=== PATIENT | male | born 1975 | race Caucasian/White ===

== ENCOUNTER 2020-05-11 07:55 | Outpatient (CLI) | payer BC, SELFPAY ==
--- NOTE | 2020-05-11 08:00 | MR_ITS ---
WS: [id number] MRI CERVICAL SPINE NONCONTRAST TECHNIQUE: Sagittal T1, T2 and STIR imaging. Axial T2, gradient, and fiesta imaging. CLINICAL INFORMATION: NECK PAIN;RIGHT CERVICAL RADICULOPATHY COMPARISON: None. FINDINGS: Straightening of the normal cervical lordosis. Mild disc bulging worse at C3-C4, C5-C6, and right ecc entric C6-7. Normal paravertebral soft tissues. C2-C3: Normal. C3-C4: Mild disc bulging with slight effacement of ventral thecal sac. Moderate right and mild left f oraminal narrowing. Mild facet arthropathy. C4-C5: Mild left and no significant right foraminal narrowing. Right eccentric osteophytic ridging. S matias canal is patent. C5-C6: Broad-based lobulated left pericentral protrusion with contact of the left ventral cervical co rd. Moderate left foraminal narrowing. Moderate right foraminal narrowing. Mild central canal stenosi s. C6-C7: Right eccentric disc osteophytic ridging. Severe right bony foraminal narrowing. Mild left for aminal narrowing. Spinal canal is patent. C7-T1: Mild right and no significant left foraminal narrowing. Spinal canal is patent. Visualized brain stem structures: Normal. Prevertebral soft tissues: Normal. MR/MR cervical spin wo con* [id number] IMPRESSION: 1. Straightening of the normal cervical lordosis with disc bulging worse at C3 -C4 C5-C6 and right C6-C7. 2. Disc osteophyte complex C6-C7 with right eccentric osteophytic ridging. Thi s results in severe right foraminal narrowing. Recommend correlation for right C7 nerve root symptoms. 3. Lobulated shallow left pericentral protrusion C5-C6 with mild central canal stenosis and slight contact of the cervical cord. Moderate bilateral foraminal narrowing at this level. 4. Right eccentric disc osteophyte complex C3-C4 with moderate right foraminal narrowing. 5. Mild disc bulging and osteophytic ridging C7-T1 with mild right foraminal n arrowing.
== END 2020-05-11 07:56 | disposition home or self-care (01) ==
PROVIDERS: PCP Nurse Practitioner Family; Visit Provider Nurse Practitioner Family
DX: M54.12 Radiculopathy, cervical region (principal); M50.23 Other cervical disc displacement, cervicothoracic region; M25.78 Osteophyte, vertebrae; M50.223 Other cervical disc displacement at C6-C7 level
CPT/HCPCS: 72141

== ENCOUNTER → 2020-05-29 07:54 | Outpatient (BNVA) | payer BC, SELFPAY | PROVIDERS: PCP Nurse Practitioner Family; Referring Provider Nurse Practitioner Family; Visit Provider Orthopaedic Surgery | DX: M54.2 Cervicalgia (principal) | CPT/HCPCS: 72050 ==

== ENCOUNTER → 2020-05-30 08:33 | Outpatient (BNVA) | payer BC, SELFPAY | PROVIDERS: PCP Nurse Practitioner Family; Referring Provider Orthopaedic Surgery; Visit Provider Anesthesiology Pain Medicine | DX: M47.22 Other spondylosis with radiculopathy, cervical region (principal); Z79.899 Other long term (current) drug therapy | CPT/HCPCS: 99205 ==

== ENCOUNTER → 2020-06-08 12:30 | Outpatient (BNVA) | payer BC, SELFPAY | PROVIDERS: PCP Nurse Practitioner Family; Visit Provider Anesthesiology Pain Medicine | DX: G89.29 Other chronic pain (principal); M54.2 Cervicalgia; M51.17 Intervertebral disc disorders with radiculopathy, lumbosacral region | CPT/HCPCS: 62321; J1100 ==

== ENCOUNTER → 2020-07-02 11:09 | Outpatient (BNVA) | payer BC, SELFPAY | PROVIDERS: PCP Nurse Practitioner Family; Visit Provider Nurse Practitioner Family | DX: Z20.828 Contact with and (suspected) exposure to other viral communicable diseases (principal); J06.9 Acute upper respiratory infection, unspecified | CPT/HCPCS: 87635 ==

== ENCOUNTER → 2020-07-16 10:15 | Outpatient (BNVA) | payer OTHER, SELFPAY | PROVIDERS: PCP Nurse Practitioner Family; Visit Provider Anesthesiology Pain Medicine | DX: G89.29 Other chronic pain (principal); M47.22 Other spondylosis with radiculopathy, cervical region | CPT/HCPCS: 62321; 99212; 99213; J1100 ==

== ENCOUNTER → 2020-07-31 10:56 | Outpatient (BNVA) | payer OTHER, SELFPAY | PROVIDERS: PCP Nurse Practitioner Family; Visit Provider Anesthesiology Pain Medicine | DX: M50.90 Cervical disc disorder, unspecified, unspecified cervical region (principal); M47.22 Other spondylosis with radiculopathy, cervical region; Z78.9 Other specified health status | CPT/HCPCS: 99214 ==

== ENCOUNTER → 2020-08-24 13:01 | Outpatient (BNVA) | payer OTHER, SELFPAY | PROVIDERS: PCP Nurse Practitioner Family; Visit Provider Anesthesiology Pain Medicine | DX: G89.29 Other chronic pain (principal); M50.90 Cervical disc disorder, unspecified, unspecified cervical region | CPT/HCPCS: 62321; J1100 ==

== ENCOUNTER 2021-04-17 10:05 | Outpatient (CLI) | payer OTHER, SELFPAY ==
[2021-04-17 10:21] VITALS: BMI 35.9
--- NOTE | 2021-04-17 10:21 | ECG_ITS ---
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 Interpretive Statements NAME OF STUDY: LEXISCAN SESTAMIBI STRESS TEST INDICATION: [Chest Pain, ] Procedure: At the baseline, the blood pressure was 113/89 mmHg with a heart rate of 122 bpm. The electrocardiogram showed normal sinus rhythm, with normal ST and T's. The Lexiscan was infused over a period of 20 seconds. A total of 0.4 mg of Lexiscan was infused. The stress phase was continued for a total of 5 minutes. Heart rate was at the end of stress phase was 85 bpm and a blood pressure of 126/82 mmHg. The EKG at the peak infusion revealed since normal sinus rhythm with no significant ST-T wave changes. Sestamibi was injected 20 seconds after the Lexiscan infusion. Blood pressure at the end of recovery phase was 115/92 mmHg with a heart rate of 80 bpm Conclusion: 1. Normal EKG response to Lexiscan infusion 2. No Lexiscan induced chest pain or cardiac arrhythmia. 3. Normal blood pressure and heart rate response. 4. Sestamibi/sestamibi perfusion scan pending; see separate report. Electronically Signed On 05-13-2021 10:34:51 NATIONAL GUARD MEMBER by Eddie Ray M.D. [id number]
--- NOTE | 2021-04-17 10:21 | NMCV_ITS ---
NM everardo perf SPECT r/s* [id number] Patel Weinstein Age: 45 Gender: M : 1975 Exam Date: 04/17/2021 10:21 Ordering Phys: Rebel Holm DO Technologist: EDUARDO Bains Exam Location: [facility] Indications: CHEST PAIN STRESS TEST Please see separate stress test report in [facility]iphany for full findings IMAGE PROTOCOL Rest/Stress 1 Lexiscan Day Radiopharmaceutical Dose (mCi) Administration Site Administered by Rest: Tc-99m 11.0 IV EDUARDO Crews Sestamibi Stress:Tc-99m 33.0 IV EDUARDO Crews Sestamibi Rest: 17-Apr-2021 60 Discovery 630 Stress: 17-Apr-2021 30 Discovery 630 0.4mg Lexiscan. Images obtained in supine and prone position. SPECT RESULTS Technical Quality: Excellent Raw Data Analysis: Normal Image Corrections: No attenuation or motion correction applied Summed Stress Score: 2 Summed Rest Score: 0 Summed Difference Score: 2 PERFUSION FINDINGS There is a small area of reversible perfusion defect in the apical anterior and mid anterior wong. FUNCTIONAL RESULTS (calculated via Gated SPECT) Stress Image LV EF (%): 68 Stress EDV (mL):96 TID: 1.02 Stress ESV (mL):31 FUNCTIONAL FINDINGS: There is normal left ventricular systolic function. IMPRESSIONS 1. Abnormal myocardial perfusion imaging with small sized area of ischemia noted in the apical anterior and mid anterior wong 2. LV systolic function is normal Eddie Ray MD (Electronically Signed) Final Date: 17 April 2021 13:52 S
[2021-04-17] MEDS: regadenoson 0.4 Mg/5 ml Syringe IVP (12:27)
[2021-04-17 12:40] VITALS: BP 115/92; PULSE 82
== END 2021-04-17 10:06 | disposition home or self-care (01) ==
LOC: CDL 10:07
PROVIDERS: PCP Nurse Practitioner Family; Visit Provider Family Medicine
DX: R07.9 Chest pain, unspecified (principal); I25.9 Chronic ischemic heart disease, unspecified; R06.02 Shortness of breath
CPT/HCPCS: 78452; 93017; A9500; J2785

== ENCOUNTER 2021-05-21 07:24 | Inpatient (IN) | payer OTHER, SELFPAY ==
[2021-05-21] VITALS (33 sets, daily range): BP systolic 101–134; BP diastolic 56–89; PULSE 53–83; RESP 11–25; TEMP 36.1–36.7; O2SAT 91–98; BMI 35.9
--- NOTE | 2021-05-21 07:26 | ECG_ITS ---
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 Measurements Intervals Christopher Rate: 61 P: 40 NE: 163 QRS: -64 QRSD: 90 T: 54 QT: 372 QTc: 376 Interpretive Statements SINUS RHYTHM LEFT AXIS DEVIATION [QRS AXIS < -30] PATTERN CONSISTENT WITH PULMONARY DISEASE INTERPRETATION BASED ON A DEFAULT AGE OF 40 YEARS No previous ECG available for comparison Electronically Signed On 05-21-2021 21:54:48 BILINGUAL CASE MANAGER by Charles Eason M.D. [id number]
--- NOTE | 2021-05-21 07:26 | XR_ITS ---
WS: [id number] Exam: XR chest 1V portable [id number] Date/Time of Exam: 05/21/2021 7:26 AM Reason For Exam: chest pain Comparison 05/21/2021. Findings: The lungs are clear and fully expanded. Costophrenic angles are sharp. No infiltrates. Bronchovascula r relief appears normal. Cardiac silhouette is unremarkable. Bony elements are intact. XR/XR chest 1V portable [id number] IMPRESSION: Unremarkable chest radiograph.
--- NOTE | 2021-05-21 07:37 | ED_ITS ---
HPI - Chest Pain General: Chief Complaint: ER Hold Stated Complaint: cp Time Seen by Provider: 05/21/21 07:36 History of Present Illness: HPI narrative: 45-year-old male presents emergency room with intermittent chest pain. Patient been having chest pain for last several weeks he is now getting chest pain occasionally while at rest. He has also had episodes of chest discomfort and a sense of palpations with mild diaphoresis with exertional activity over the last month. He had done a sestamibi stress test last month which showed abnormalities in the apical and mid anterior wong. Patient intermittently has continued to have chest discomfort. He is also noticed an unusual shortness of breath recently with activity. Initially he had thought it was due to his asthma but has been happening more more often with activity and he notices that it is not relieved by albuterol whereas in the past he rarely use the albuterol and when he did he had near instant relief from his asthma symptoms. That has not been the case last several weeks. This morning was having some mild diaphoresis and chest discomfort which she rated around a 3 while at rest. He did take a full aspirin. He had been taking baby aspirin after that point. Patient does not have a history of hypertension does have some mild asthma as well as sleep apnea he is not known to be diabetic but he has not been formally tested recently. I had previously ordered a Lexiscan sestamibi stress test on this patient last month. The result was positive and is in the chart. I discussed with Dr. Villalta he was scheduled to see Dr. Villalta today for initial evaluation for further testing including possible angiography. MD complaint: chest discomfort Pertinent past history: other (Recent positive Lexiscan sestamibi stress test) Onset (ago): week(s) Timing of current episode: episodic and now resolved Onset: during rest Pain location: left chest Pain radiation: none Severity: mild Pain scale (0-10): 4 Quality: tightness, aching and heaviness Relieving factors: nothing Exacerbating factors: nothing Associated symptoms: Deny abdominal pain, diaphoresis, dyspnea, fever(s), leg edema, nausea, palpitations, sense of impending doom, syncope or vomiting Treatment prior to arrival: aspirin Review of Systems Const: Denies: fever(s) or diaphoresis ENMT: Denies: throat pain, ear or mastoid pain, nasal discharge or nasal congestion Card: Denies: palpitations or syncope Resp: Denies: dyspnea GI: Denies: abdominal pain, nausea or vomiting : Denies: flank pain, dysuria, urinary frequency or urinary urgency Skin/Breast: Denies: rash or pruritus PFSH ED PFSH: Family History Father Cancer Social History Smoking and tobacco status: never smoked Alcohol intake: current Alcohol intake frequency: holidays/special occasions only Lives independently: Yes History of recent travel: No Physical Exam Const: COMMON NORMALS: no acute distress GENERAL APPEARANCE: cooperative and comfortable ORIENTATION/CONSCIOUSNESS: Yes awake, Yes oriented to person, Yes oriented to place and Yes oriented to time HENMT: COMMON NORMALS: normocephalic, atraumatic and hearing grossly normal bilaterally HEAD & SCALP: normocephalic and atraumatic Neck/C-Spine: COMMON NORMALS: no JVD Resp: COMMON NORMALS: normal respiratory effort, No retractions, No use of accessory muscles and clear to auscultation bilaterally AUSCULTATION: clear to auscultation bilaterally Cardio: COMMON NORMALS: no JVD, regular rate, regular rhythm and No murmurs present (Cardio) RATE: regular rate RHYTHM: regular rhythm GI: COMMON NORMALS: Soft to palpation and No hepatosplenomegaly present AUSCULTATION: Yes normoactive bowel sounds PALPATION: Yes Soft to palpation, No Tenderness to palpation present (GI), No Guarding due to palpation present (GI) and Yes No hepatosplenomegaly present Extremity: COMMON NORMALS: normal to inspection, capillary refill normal, no clubbing, cyanosis or edema, no calf tenderness and no pedal edema Neuro: SENSORIUM/ORIENTATION: Yes oriented to person, Yes oriented to place and Yes oriented to time Skin: COMMON NORMALS: no rashes or lesions noted GENERAL SKIN EXAM: no rashes or lesions noted Course Vital Signs: Vital signs: Vital Signs Temperature 98.1 F 05/22/21 14:09 Pulse Rate 75 05/22/21 14:09 Respiratory Rate 16 05/22/21 14:09 Blood Pressure 105/66 05/22/21 14:09 Pulse Oximetry 100 05/22/21 14:09 MDM - Chest Pain MDM Narrative: Medical decision making narrative: Suspect his asthma-like symptoms are actually an anginal equivalent. Given the fact he has a known positive and is now having symptoms at rest patient will be admitted discussed Dr. Eason orders written. Lab Data: Labs: Lab Results 05/21/21 05/21/21 05/21/21 07:35 07:35 07:35 WBC 7.2 10^3/uL 10^3/ uL (4.0-10.0) RBC 4.21 10^6/uL 10^6 /uL (4.1-5.3) Hgb 16.9 g/dL H g/dL (11.7-16.6) Hct 37.8 % L % (42.0-52.0) MCV 89.8 fl fl (80-94) MCH 40.1 pg H pg (28.0-34.0) MCHC 44.7 g/dL H g/dL (30.0-36.0) RDW 13.1 % % (12.1-15.1) Plt Count 272 10^3/cmm 10^3 /cmm (130-400) MPV 9.8 fL fL (7.4-10.4) Neut % (Auto) 55.3 % % Lymph % (Auto) 27.7 % % Schuyler % (Auto) 7.9 % % Eos % (Auto) 8.2 % % Baso % (Auto) 0.6 % % Neut # (Auto) 3.97 10^3/uL 10^3 /uL (1.8-7.7) Lymph # (Auto) 2.0 10^3/uL 10^3/ uL (0.8-4.8) Schuyler # (Auto) 0.6 10^3/uL 10^3/ uL (0.2-0.9) Eos # (Auto) 0.6 10^3/uL 10^3/ uL (0.0-0.8) Baso # (Auto) 0.0 10^3/uL 10^3/ uL (0.0-0.1) Nucleated RBC % (a uto) 0 % % Nucleated RBCs # 0.0 /100WBC /100W BC PT INR APTT Sodium 139 mmol/L mmol/L (136-145) Potassium 4.1 mmol/L mmol/L (3.5-5.1) Chloride 100 mmol/L mmol/L (98-107) Carbon Dioxide 25 mmol/L mmol/L (22-29) Anion Gap 18.1 (5-19) BUN 13 mg/dL mg/dL (6-20) Creatinine 1.1 mg/dL mg/dL (0.7-1.2) GFR Calculation 72.4 mL/min L mL/ min (90-130) Glucose 87 mg/dL mg/dL (65-115) Calculated Osmolal ity 287 mOsm/kg mOsm/ kg (285-295) Calcium 9.5 mg/dL mg/dL (8.5-10.5) Total Bilirubin 1.1 mg/dL mg/dL (0.15-1.2) AST 27 U/L U/L (0-40) ALT 41 U/L U/L (0-41) Alkaline Phosphata se 56 IU/L IU/L (40-130) Troponin T Baselin e 9 ng/L ng/L (0-15) Troponin T 120 Min [place] Troponin T Troponin T Hi Sens 6Hr Troponin T Hi Sens 6Hr Delta Total Protein 7.1 g/dL g/dL (6.6-8.7) Albumin 4.5 g/dL g/dL (3.5-5.2) Globulin 2.6 g/dL g/dL (1.3-4.6) 05/21/21 05/21/21 05/21/21 07:35 10:04 13:16 WBC RBC Hgb Hct MCV MCH MCHC RDW Plt Count MPV Neut % (Auto) Lymph % (Auto) Schuyler % (Auto) Eos % (Auto) Baso % (Auto) Neut # (Auto) Lymph # (Auto) Schuyler # (Auto) Eos # (Auto) Baso # (Auto) Nucleated RBC % (a uto) Nucleated RBCs # PT 14.10 SECONDS SEC ONDS (12.1-14.9) INR 1.06 (0.8-1.2) APTT 36.5 SECONDS SECO NDS (23.9-36.7) Sodium Potassium Chloride Carbon Dioxide Anion Gap BUN Creatinine GFR Calculation Glucose Calculated Osmolal ity Calcium Total Bilirubin AST ALT Alkaline Phosphata se Troponin T Baselin e Troponin T 120 Min [place] 7.37 ng/L ng/L (0-15) Delta Troponin T -1.63 ABS# L ABS# (0-10) Troponin T Hi Sens 6Hr 6.38 ng/L ng/L (0-15) Troponin T Hi Sens 6Hr Delta -2.62 ng/L L ng/L (0-12) Total Protein Albumin Globulin Discharge Plan Discharge Patient Disposition: Admitted As Inpatient Admit Provider: Charles Eason Clinical Impression: Unstable angina pectoris, Asthma, Central sleep apnea Condition: Stable Discharge Diet: Advance as tolerated Discharge Activity: Resume usual activity Coding Level of Care Code ED Supervisor Waterworks for Chg Fwd Exam Comprehensive
[2021-05-21] MEDS: clopidogrel 300 mg Tablet 600 MG PO (07:45)
[2021-05-21] MEDS: nitroglycerin 1 gm/inch oint Pkt 1 INCH TOPICAL (07:46)
[2021-05-21 08:00] LABS: Basophils % 0.6 %; Eosinophils # 0.6 10^3/uL (0.0-0.8); Eosinophils % 8.2 %; Hematocrit 37.8 % (42.0-52.0); Hemoglobin 16.9 g/dL (11.7-16.6); Lymphocytes % 27.7 %; Mean Corpuscular HGB Conc 44.7 g/dL (30.0-36.0); Mean Corpuscular Hemoglobin 40.1 pg (28.0-34.0); Mean Corpuscular Volume 89.8 fl (80-94); Mean Platelet Volume 9.8 fL (7.4-10.4); Monocytes # 0.6 10^3/uL (0.2-0.9); Monocytes % 7.9 %; Neutrophils # 3.97 10^3/uL (1.8-7.7); Neutrophils % 55.3 %; Nucleated Red Blood Cells % 0 %; Platelet Count 272 10^3/cmm (130-400); Red Blood Count 4.21 10^6/uL (4.1-5.3); Red Cell Distribution Width 13.1 % (12.1-15.1); White Blood Count 7.2 10^3/uL (4.0-10.0)
[2021-05-21 08:19] LABS: Troponin(5th) Baseline 9 ng/L (0-15)
[2021-05-21 08:22] LABS: Alanine Aminotransferase 41 U/L (0-41); Albumin Level 4.5 g/dL (3.5-5.2); Alkaline Phosphatase 56 IU/L (40-130); Aspartate Amino Transferase 27 U/L (0-40); Blood Urea Nitrogen 13 mg/dL (6-20); Calcium 9.5 mg/dL (8.5-10.5); Carbon Dioxide 25 mmol/L (22-29); Chloride 100 mmol/L (98-107); Globulin 2.6 g/dL (1.3-4.6); Glomerular Filtration Rate 72.4 mL/min (90-130); Glucose 87 mg/dL (65-115); Osmolality Calculated 287 mOsm/kg (285-295); Sodium 139 mmol/L (136-145); Total Bilirubin 1.1 mg/dL (0.15-1.2); Total Protein 7.1 g/dL (6.6-8.7)
[2021-05-21 08:28] LABS: Anion Gap 18.1 (5-19); Potassium 4.1 mmol/L (3.5-5.1)
[2021-05-21 08:59] LABS: INR 1.06 (0.8-1.2)
[2021-05-21 09:03] LABS: Partial Thromboplastin Time 36.5 SECONDS (23.9-36.7)
[2021-05-21 09:19] LABS: Slide Review Slide Review Perform
--- NOTE | 2021-05-21 09:26 | ECG_ITS ---
[facility] Test Date: 2021-05-21 Pat Name: Patel Weinstein Department: Room: ED Gender: Male Paginator: : 1975 Requested By: Richa Tomlin Order Number: [id number] Elizabeth MD: Charles Eason M.D. Measurements Intervals [place] Rate: 64 P: 48 [place]: 200 QRS: -79 QRSD: 92 T: 59 QT: 400 QTc: 415 Interpretive Statements SINUS RHYTHM LEFT AXIS DEVIATION [QRS AXIS < -30] PATTERN CONSISTENT WITH PULMONARY DISEASE Compared to ECG 05/21/2021 07:29:20 No significant changes Electronically Signed On 05-21-2021 22:12:09 MUSICAL STRING MAKER by Charles Eason M.D. [id number]
--- NOTE | 2021-05-21 09:43 | PM.HP ---
Providers/Chief Complaint Admitting Physician: Charles Eason MD Primary Care Provider: SHAUNNA Pelletier Chief Complaint: cp History of Present Illness Patel Weinstein is a 45 year old male with a history of reactive airway disease and sleep apnea, presenting with chest pain. Chest pain woke him up around 2:00 this morning. It was a sharp pain in the beginning associate some heaviness. The intensity of the pain was around 8/10. Even though the sharp pain subsided, he continued to have the heaviness associated with the shortness of breath, sweating and dizziness. Even though he had chest pains before the shortness of breath, sweating and the dizziness were new. For these complaints, he decided to come to the emergency room. He had a myocardial perfusion imaging last month which showed a small area of ischemia in the distribution of the left anterior descending artery. He has a strong family history for premature atherosclerotic heart disease. He is and her brother had a myocardial infarction in his 40s. One of his cousins also had a myocardial infarction in his 40s. No other relevant family history. No history for hypertension, diabetes or dyslipidemia. No history for smoking abuse, alcohol abuse or any substance abuse. Review of Systems Narrative: CONSTITUTIONAL: No fever or chills. EYES: No blurring of vision or other visual disturbances lately. ENT: No hoarseness of voice, auditory disturbances or sore throat. CARDIOVASCULAR: As mentioned above. RESPIRATORY: History of reactive airway disease and sleep apnea as mentioned above GASTROINTESTINAL: No hematemesis or melena. GENITOURINARY: No dysuria or hematuria. INTEGUMENTARY: No skin rashes or history of skin cancer. NEURO: No transient ischemic attacks or amaurosis. PSYCHIATRIC: No history of psychosis or major depression. HEMATOLOGIC: No bleeding disorders or significant anemia. ENDOCRINE: No history of polyuria or polydipsia. MUSCULOSKELETAL: No recent joint pain or swelling. ALLERGY/IMMUNOLOGY: As mentioned above. Medications/Allergies Home Medications Medication Instructions Recorded Confirmed Last Taken Type budesonide-formoterol HFA 80 2 puff INHALATION BID 05/29/20 05/21/21 Unknown History mcg-4.5 mcg/actuation aerosol inhaler fexofenadine 60 mg tablet 60 mg PO BID 05/29/20 05/21/21 05/20/21 History albuterol sulfate 90 mcg/actuation 1 inh INHALATION QID PRN 05/30/20 05/21/21 Unknown History aerosol inhaler ibuprofen 600 mg tablet 600 mg PO DAILY PRN tab 05/30/20 05/21/21 Unknown History Allergies Allergy/AdvReac Type Severity Reaction Status Date / Time CHOLESTEROL MED UNKNOWN Allergy HIVES Uncoded 08/28/20 11:26 PFSH Acute PFSH: Family History Father Cancer Social History Smoking and tobacco status: never smoked Alcohol intake: current Alcohol intake frequency: holidays/special occasions only Lives independently: Yes History of recent travel: No Vitals/I&O/Wt Last Vital Signs Pulse 66 05/21/21 08:44 Resp 17 05/21/21 08:44 BP 125/89 05/21/21 08:44 Pulse Ox 92 05/21/21 08:44 Weight last 48 hrs Weight 250 lb Physical Exam Narrative: EXAM NARRATIVE: GENERAL: The patient is alert and oriented times three. Not in any acute distress. HEENT: No significant pallor, icterus or lymphadenopathy. The pupils are reactant to light. Oral cavity: There are no mucous membrane lesions. Funduscopic examination: The fundus is not visual NECK: Trachea appears to be central. No masses noted. No JVD or thyromegaly appreciated. No carotid bruit. RESPIRATORY: Chest is symmetrical. No intercostals muscle retraction or any accessory muscle activation. There is no chest wall tenderness. Breath sounds are heard bilaterally. No rales or rhonchi heard. No evidence of any consolidation. BREASTS: Deferred. HEART: The PMI could not be palpated. No palpable precordial events. S1 and S2 are normal. No S3 or S4 heard. No pericardial rub or any click heard. ABDOMEN: No vessel pulsations or distention. No tenderness. No organomegaly appreciated. No abdominal bruit. Bowel sounds are normally heard. : Deferred. RECTAL: Deferred. LYMPHATIC: No lymphadenopathy noted in the neck or groin. EXTREMITIES: No edema or cyanosis. No clubbing. The pulses are symmetrical bilaterally. The radial, femoral, dorsalis pedis and the posterior tibial pulses are palpated and found to be in good volume and amplitude. MUSCULOSKELETAL: No acute joint deformities or swelling SKIN: There are no significant scars or skin rash noted. NEUROPSYCHIATRIC: The patient is alert and oriented x3. Appears to be in a good mood. The higher functions are grossly within normal limits. No tremors or rigidity noted. Data : 05/22/21 02:24 05/22/21 02:24 Myocardial perfusion imaging: My impression: 1. Abnormal myocardial perfusion imaging with small sized area of ischemia noted in the apical anterior and mid anterior wong 2. LV systolic function is normal CXR: My impression: Normal cardiac silhouette with no lung infiltrate. No acute pathology noted. EKG 1: My Interpretation: Normal sinus rhythm with left axis deviation. No acute ST-T changes. A&P Assessment and plan (1) Unstable angina pectoris: Patient symptoms are suggestive of unstable angina. Hemodynamically seems to be stable. For further evaluation of his symptoms, he may go ahead and do an echocardiogram. I also may start him on subcu Lovenox, Plavix, aspirin and a beta-bob. The cholesterol status is not known. We will do a lipid profile. Also may start him on a statin drug. In view of the patient's high risk status, he requires a cardiac catheterization, to further evaluate the coronary status and decide on further management. Status: Acute (2) Asthma: We will continue on the current treatment Status: Acute (3) Central sleep apnea: Patient may continue with the CPAP. Status: Acute (4) Cervical disc disease: Continue on the current management Status: Acute Attestations Medical Necessity Statement*: Patient may require 2 midnight stay, for further evaluation and management of his condition Coding Level of Care Code Acute [facility] for Samantha Cook History Detailed Exam Detailed Medical Decision Making High Complexity Diagnoses Unstable angina pectoris I20.0 Asthma J45.909 Central sleep apnea G47.31 Cervical disc disease M50.90
[2021-05-21 10:52] LABS: Troponin 5 2HR 7.37 ng/L (0-15)
[2021-05-21 10:57] LABS: Troponin 5 2HR Delta -1.63 ABS# (0-10)
--- NOTE | 2021-05-21 13:33 | USCV_ITS ---
Patel Weinstein Age: 45 Gender: M : 1975 Exam Date: 05/21/2021 14:39 Ordering Phys: Rebel Holm DO Technologist: Judy Rubin [place] [facility] [place]: [place]GINA BP: 119 / 56 HR: 55 Rhythm: Sinus Technical Quality: Adequate MEASUREMENTS (Male / Female) Normal Values 2D ECHO LV Diastolic Diameter PLAX 5.3 cm 4.2 - 5.9 / 3.9 - 5.3 cm LV Systolic Diameter PLAX 3.2 cm IVS Diastolic Thickness 0.9 cm 0.6 - 1.0 / 0.6 - 0.9 cm IVS Systolic Thickness 1.4 cm LVPW Diastolic Thickness 1.2 cm 0.6 - 1.0 / 0.6 - 0.9 cm LVPW Systolic Thickness 1.8 cm LVOT Diameter 2.0 cm LV Ejection Fraction 2D Teich 69.9 % LV Ejection Fraction MOD 2C 53.9 % LV Ejection Fraction 2C AL 53.6 % LA Diameter 3.7 cm LA Width 3.9 cm LA Height 4.3 cm RA Width 3.0 cm RA Height 4.1 cm Aorta at Sinotubular Diameter 3.1 cm M-MODE Aortic Annulus Diameter 3.4 cm LA Ao Ratio MM 1.1 MV E Point Septal Separation 0.5 cm DOPPLER AV Peak Velocity 94.0 cm/s LVOT Peak Velocity 81.0 cm/s AV Area Cont Eq vti 2.5 cm squared AV Area Cont Eq pk 2.7 cm squared MV Peak Velocity 79.0 cm/s MV Area PHT 4.8 cm squared Mitral E to A Ratio 1.4 MV E' Velocity 40.0 cm/s Mitral E to MV E' Ratio 6.6 Mitral E to LV E' Lateral Ratio 5.6 Mitral E to LV E' Septal Ratio 8.3 TR Peak Velocity 184.0 cm/s TR Peak Gradient 13.5 mmHg TR Mean Velocity 171.5 cm/s TR Mean Gradient 12.4 mmHg TR Velocity Time Integral 51.5 cm TV Peak E Velocity 55.0 cm/s Right Atrial Pressure 3.0 mmHg Pulmonary Artery Systolic Pressu 16.5 mmHg PV Peak Velocity 73.0 cm/s RV Acceleration Time 0.1 s RV Ejection Time 0.3 s RV AcT/ET 0.4 FINDINGS Left Ventricle Normal left ventricular size and systolic function, EF 55 %. No gross wall motion abnormalities Right Ventricle The right ventricle is normal in size and function. Right Atrium The right atrium is normal in size. Left Atrium The left atrium is normal in size. Mitral Valve No gross abnormalities noted Aortic Valve Thickened aortic valve. Tricuspid Valve 1. Occlusive pulmonary emboli in the anterior and lateral segmental branches and and subsegmental branches of the right lower lobe pulmonary artery. Nonocclusive pulmonary emboli in the superior and posterior segmental branches of the right lower lobe pulmonary artery. 2. The RV/LV ratio is 0.89, which is borderline upper normal. 3. Large left pleural effusion. 4. Compressive atelectasis in the the left lower lobe. 5. Scattered diverticula in the colon. No evidence for diverticulitis. 6. Spiculated nodule in the anterior left upper lobe with mediastinal and right axillary lymphadenopathy. Findings are concerning for a primary No gross abnormalities noted Pulmonic Valve No gross abnormalities noted Pericardium Normal pericardium without effusion. Aorta Normal ascending aorta dimension. CONCLUSIONS Normal left ventricular size and systolic function, EF 55 %. No gross wall motion abnormalities. Normal cardiac chamber sizes. No gross valvular abnormalities. There are no intracardiac masses. There is no pericardial effusion. No previous study is available for comparison. Dr Charles Eason MD [facility] (Electronically Signed) Final Date: 21 May 2021 16:14 S
[2021-05-21] MEDS: enoxaparin 120 mg/0.8 mL Syringe 110 MG SUBCUT ×2 (13:51→22:51)
[2021-05-21 13:56] LABS: Troponin 5 6HR 6.38 ng/L (0-15)
[2021-05-21] MEDS: sodium chloride 0.9% 1,000 ML 100 ML IV ×2 (13:58→20:18)
[2021-05-21 14:00] LABS: Troponin 5 6HR Delta -2.62 ng/L (0-12)
--- NOTE | 2021-05-21 14:10 | PC.NURSE ---
FRAN CONSULTED WITH GONZALO ABOUT METOPROLOL DOSAGE VIA TELEPHONE. DOSE CHANGED TO 12.5MG PER AGREEMENT ON BOTH PARTS.
[2021-05-21] MEDS: metoprolol tartrate 25 mg Tablet 12.5 MG PO ×2 (14:30→20:18)
--- NOTE | 2021-05-21 17:00 | PC.NURSE ---
Pt sitting up in bed resting and talking to . Pt resp even and non-labored no distress noted. Pt had no c/o pain or discomfort the present time. No needs voiced. Call light in reach.
--- NOTE | 2021-05-21 18:59 | ECG_ITS ---
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 Measurements Intervals [place] Rate: 54 P: 41 WV: 191 QRS: -77 QRSD: 95 T: 56 QT: 397 QTc: 377 Interpretive Statements SINUS BRADYCARDIA LEFT AXIS DEVIATION [QRS AXIS < -30] PATTERN CONSISTENT WITH PULMONARY DISEASE Compared to ECG 05/21/2021 10:19:37 Sinus rhythm no longer present Electronically Signed On 05-21-2021 22:14:27 SLEEVE SETTER by Charles Eason M.D. [id number]
[2021-05-22] VITALS (48 sets, daily range): BP systolic 97–121; BP diastolic 63–80; PULSE 61–79; RESP 5–20; TEMP 36.5–37; O2SAT 91–100
[2021-05-22 03:05] LABS: Basophils % 0.5 %; Eosinophils # 0.7 10^3/uL (0.0-0.8); Hematocrit 45.6 % (42.0-52.0); Hemoglobin 15.7 g/dL (11.7-16.6); Lymphocytes # 3.3 10^3/uL (0.8-4.8); Lymphocytes % 38.6 %; Mean Corpuscular HGB Conc 34.4 g/dL (30.0-36.0); Mean Corpuscular Hemoglobin 29.6 pg (28.0-34.0); Mean Platelet Volume 9.8 fL (7.4-10.4); Monocytes # 0.6 10^3/uL (0.2-0.9); Monocytes % 6.9 %; Neutrophils # 3.86 10^3/uL (1.8-7.7); Neutrophils % 45.9 %; Nucleated Red Blood Cells % 0 %; Platelet Count 242 10^3/cmm (130-400); Red Cell Distribution Width 12.8 % (12.1-15.1); White Blood Count 8.4 10^3/uL (4.0-10.0)
[2021-05-22 03:26] LABS: Anion Gap 17.8 (5-19); Blood Urea Nitrogen 11 mg/dL (6-20); Calcium 8.3 mg/dL (8.5-10.5); Carbon Dioxide 20 mmol/L (22-29); Chloride 104 mmol/L (98-107); Creatinine Clr Calc Pharmacy 117.6406; Glomerular Filtration Rate 80.8 mL/min (90-130); Glucose 89 mg/dL (65-115); Osmolality Calculated 285 mOsm/kg (285-295); Potassium 3.8 mmol/L (3.5-5.1); Sodium 138 mmol/L (136-145)
[2021-05-22] MEDS: diphenhydrAMINE 50 mg Capsule PO (05:04)
--- NOTE | 2021-05-22 05:22 | XACV_ITS ---
Exam Room: [facility] Ht: 178 cm Wt: 113 kg BSA: 2.41 m2 Gender: Male : 1975 Exam Priority: Routine Procedure(s): Procedure Description: Diagnostic procedure Procedure Description: Left Heart Catheterization Procedure Description: Left ventriculography Procedure Description: Coronary Angiography Jenaro HUTCHISON; Diagnostic Cath Status: Urgent Diagnostic Findings * No disease noted in the Left Main, Left Anterior Descending, Right, or Circumflex coronary arteries. * Coronary angiography shows right dominance. * The left main is a large-caliber somewhat ectatic vessel with a normal stenotic lesions. * Left anterior descending artery has diffuse ectasia proximally. The flow into the artery is very sluggish. Normal significant obstructive lesions are noted. Artery gives off 2 diagonal branches proximally. They were found to have no stenotic lesions. The flow in the diagonal vessels also were found to be sluggish.. * The left circumflex artery is a medium caliber nondominant vessel with no significant stenotic lesions. * The right coronary artery is a medium to large caliber dominant vessel with no significant stenotic lesions. Conclusions 1. Normal left ventricular systolic function. Ejection fraction of 55%. 2. This is a 45-year-old white male with history of sleep apnea, reactive airway disease and a strong family history for premature atherosclerotic heart disease, presents with complaints of prolonged episode of chest pain, shortness of breath, sweating and dizziness. He had a myocardial perfusion imaging couple of weeks ago which revealed some small areas of reversible defect in the distribution of the left anterior descending artery. Myocardial infarction was ruled out. In view of the patient's presenting symptoms and the risk factors, in order to further evaluate his coronary status, a cardiac catheterization was recommended. Patient underwent left heart catheterization with a left and right coronary angiogram and LV angiogram today. The findings are as follows. 3. No significant obstructive coronary artery disease. Left main is a large-caliber vessel with no significant stenotic lesions. Very sluggish flow in the left anterior descending artery and the diagonal vessels. Ectatic proximal segment of the arteries. Right coronary artery is dominant with no significant stenotic lesions. The left circumflex artery also was found no stenotic lesions. Normal LV ejection fraction of 55%. LVEDP of 12 mmHg. No significant wall motion abnormalities. Recommendations * Continue current medical management and risk factor modification. Diagnostic RX Recommendation: medical therapy and/or counseling LV EDP: 12 mmHg Ventriculography Ejection Fraction: 55.0 % Left Ventriculography Findings: * LV gram was performed the SAWANT projection. The LV cavity is of normal size. LV ejection fraction around 55%. LVEDP was 12 mmHg. No significant mitral valve prolapse or mitral regurgitation. No filling defects are noted. Pressures Phase:Rest AO : 95 / 74 ( 84 ) @ 4:15:00 AM 92 / 71 ( 83 ) @ 4:21:00 AM 111 / 79 ( 92 ) @ 4:28:00 AM 115 / 70 ( 91 ) @ 4:28:00 AM LV : 124 / -1 / 28 @ 4:27:00 AM 122 / 2 / 30 @ 4:28:00 AM 122 / 0 / 27 @ 4:28:00 AM Valves Phase:DefaultPhase AV : 10.0 @ 6:38:27 AM AV Mean Gradient: 10.0 @ 6:38:27 AM 10.0 @ 6:38:27 AM Clinical Evaluation EBL: 5mL-10mL Procedural Details Procedure Consent Obtained. Admit Source: In Patient. Pre-Procedure Time Out. Identified patient by full name and date of as verbalized by the patient/guarantor. Does the consent match the physician's order: Yes. Accurate & Complete Informed Consent: Yes. Inpatient/Outpatient History & Physical on Chart: Yes. Visualize and Verify Site with Patient/Guarantor: N/A. Relevant Radiology Images available: N/A. Pre-op teaching completed and patient verbalized understanding. The risks, benefits, and alternatives of sedation and/or procedure were discussed by physician. The patient agrees to continue. Procedure started. [facility] Clinical Fraility Score: 2: Well. Janitorial Supervisor Indications: Worsening Angina. Chest Pain Symptom Assessment: Atypical Angina. Correct patient, site and procedure confirmed by cath team. Current diagnosis: Chest Pain. PERRLA. 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 Lungs clear x 5 lobes. IV Site on Arrival: 18 gauge in the right anticubital. IV Site on Arrival: 18 gauge in the left anticubital. IV Fluids: 0.9% NaCl at KVO. 400 mL infused prior to floating labor gang supervisor. Pre Procedural Pulses: bilateral dorsalis pedis was 2+. Pre Procedural Pulses: bilateral radial was 3+. Oxygen started at 2liters/min via nasal canula. right groin was prepped with chloroprep then draped in the usual sterile fashion. right radial was prepped with chloroprep then draped in the usual sterile fashion. Baseline sample Acquired. HR: 65 BPM. Physician notified. Physician arrived. Physician scrubbed in. Immediate Pre-Procedure Time Out. Correct Patient: Yes; Correct Procedure: Yes; Correct Site: Yes; Correct Patient Position: Yes; Correct Supplies: Yes; Dried Flammable Prep: YES Blood Products Available: N/A;. Lidocaine 1% infiltrated to the right radial. Arterial access obtained. A 5 cayman islander Deepak catheter in over wire. Yessenia Lima vp construction nurse for procdure. Catheter out. Multiple views taken of left coronary artery. A 5 cay[place] islander JR4 catheter in over wire. Multiple views taken of right coronary artery. Catheter out. EDP Sample taken: LV 124/-2,28; HR: 70 BPM; SpO2: 98%. Aortogram performed in SAWANT @ 10 mL/second for a total of 30 mL. EDP Sample taken: LV 122/2,30; HR: 70 BPM; SpO2: 99%. Pullback taken: LV 122/0,27; AO 111/79(92); Mean: 10mmHg, Peak to Peak: 10mmHg, SEP: 17sec/min; HR: 71 BPM; SpO2: 99%. Catheter out. A 5 cayman islander Angled Pig catheter in over wire. Physician review of cine films. A TR Band was successful obtaining hemostatsis at the Right Radial artery insertion site. Post Procedure: Pulses reassessed and unchanged. PERRLA. 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 No VTE prophylaxis required. Medication's Wasted: Lidocaine 1% = 18 mL. Post-op diagnosis: Coronary ectasia, small vessel disease. Total IV fluids: 250 mL. Complications: none. Estimated blood loss: 5mL-10mL. Procedure completed. Patient transferred by wheelchair to 1st floor. Vital chart was stopped. Access Site Site: Right Radial artery Sheath Size: 6 Fr Hemostasis Method: TR Band Hemostasis Success: Successful Procedure Medications Start: 6:06 AM Stop: 6:06 AM Medication: Versed Amount: 1 mg Route: I.V. Start: 6:06 AM Stop: 6:06 AM Medication: Fentanyl Amount: 25 mcg Route: I.V. Start: 6:12 AM Stop: 6:12 AM Medication: 0.9% Saline Amount: 250 ml Route: I.V. bolus Start: 6:12 AM Stop: 6:12 AM Medication: Nitrogylcerin Amount: 200 mcg Route: I.A. Start: 6:14 AM Stop: 6:14 AM Medication: Versed Amount: 1 mg Route: I.V. Start: 6:15 AM Stop: 6:15 AM Medication: Heparin Amount: 3000 units Route: I.V. I, the attending physician, have reviewed and verified all procedure medications. Yes, all medications given per verbal order History/Risk Factors Hypertension: No Dyslipidemia: No Peripheral Arterial Disease (PAD): No Myocardial Infarction (VT): No Obesity: Yes Renal Disease: No Tobacco Use: Never Prior Interventions PCI: No CABG: No Valve Surgery: No Report Signatures Finalized by Dr Charles Eason MD [facility] on 05/22/2021 11:11 AM
[2021-05-22] MEDS: metoprolol tartrate 25 mg Tablet 12.5 MG PO (08:51)
[2021-05-22] MEDS: pantoprazole DR 40 mg Tablet PO (08:52)
[2021-05-22] MEDS: fexofenadine 60 mg Tablet PO (08:54)
--- NOTE | 2021-05-22 09:00 | PC.CHAP ---
Pastoral Care Encounter/Spiritual Assessment Type of Contact [] Declined high school band director visit [] Patient/Family/Request visit [] Outpatient visit [] Follow-up visit [] Physician referral [] Code/Alert [x] Routine visit [] Staff referral [] Actively dying [] Patient sleeping [] Family support [] [] Out of room [] Palliative care [] [] Receiving care in room [] Pre-surgical visit [] Trauma [] Long length of stay [] ICU visit [] Other: Relational/Emotional Strength [] Patient feels connected with others/family/visitors/staff [] Distress [] Loneliness/isolation [] Abandonment Spirituality of Patient [x] Person of [place] [x] Attends Buddhism of their [place] [x] Believes in Prayer [x] Reads Bible or Latter-Day materials [] There are Spiritual issues to be addressed Shearing Machine Feeder Interventions [x] Prayer [x] Active listening [x] Non-anxious presence [x] Spiritual/emotional support [] Crisis/trauma care [] Spiritual counseling [] Bereavement support [] Provided bereavement packet [] Provided Bible/devotional materials [] Provided toy/stuffed animal, coloring book to patient or family member [] Provided Communion [] Anointing/[place] [] Salvation [x] Completed spiritual assessment [] Other: Impact on Illness or Injury [] Angry [] Fearful [] Anxious [] Often cries [] Exhaustion [] Unable to work [] Unable to attend buddhist [] Unable to walk/stand [] Unable to read [] Unable to drive [] Unable to eat/drink [] Unable to sleep [] Unable to be with family [] Patient intubated [] Other: 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 believing in healing and strength Time spent with patient 10 min
--- NOTE | 2021-05-22 09:27 | PC.NURSE ---
Patient arrived to floor from geophysical laboratory chief around 0645. TR band to right wrist. No bleeding or hematoma noted. Radial pulse present. Patient educated on activity restrictions and verbalized understanding. VSS.
--- NOTE | 2021-05-22 10:40 | PC.NURSE ---
TR band removed, minor oozing, no hematoma present. Nurse will continue to monitor.
[2021-05-22] MEDS: isosorbide mononitrate ER 30 mg Tablet PO (12:05)
[2021-05-22] MEDS: aspirin 81 mg EC Tablet PO (12:05)
--- NOTE | 2021-05-22 12:50 | PM.DCS ---
Discharge Providers Date of Admission: 05/21/21 13:42 Date of Discharge: May 22, 2021 Attending Provider at Admission: Charles Eason MD Attending Provider at Discharge: Charles Eason MD Primary Care Provider: SHAUNNA Pelletier Diagnoses at Discharge Discharge Diagnosis (1) Unstable angina pectoris: Status: Acute Permanent problem details: Patient symptoms are suggestive of unstable angina. Myocardial infarction was ruled out. Cardiac cauterization revealed no significant coronary artery disease. Patient was found to have coronary ectasia and sluggish flow in the left and descending artery and its branches. Possibility of him having small vessel disease was considered. It was decided to start him on nitrates and aspirin. (2) Asthma: Status: Acute Permanent problem details: We will continue on the current medications (3) Central sleep apnea: Status: Acute Permanent problem details: We will continue on the current management (4) Cervical disc disease: Status: Acute Permanent problem details: Continue the current management and follow-up evaluation as per the primary care provider Reason for Visit Reason for Visit: cp Hospital Course Hospital Course The patient was treated with a topical nitrates, Plavix, aspirin and a small dose of beta-bob. Myocardial infarction was ruled out. His echocardiogram was unremarkable. Because of his ongoing worsening of the chest pains, he was taken to the cardiac catheterization lab. He underwent left heart catheterization with a left and right coronary angiogram and LV angiogram today. He was found to have no significant obstructive coronary artery disease. The blood flow in the left and descending artery was found to be very sluggish. The proximal segment of the artery was found to be ectatic. Possibility of small vessel disease causing the sluggish flow was considered. Based on the angiogram findings, it was decided to treat her medically. She was started on isosorbide mononitrate 30 mg p.o. daily and baby aspirin 1 tablet p.o. daily. Since he continues to remain stable, he is being discharged home today Physical Exam Narrative: EXAM NARRATIVE: GENERAL: The patient is alert and oriented times three. Not in any acute distress. HEENT: No significant pallor, icterus or lymphadenopathy.Oral cavity: There are no mucous membrane lesions. NECK: Trachea appears to be central. No masses noted. No JVD or thyromegaly appreciated. RESPIRATORY: Chest is symmetrical. No intercostals muscle retraction or any accessory muscle activation. There is no chest wall tenderness. Breath sounds are heard bilaterally. No rales or rhonchi heard. No evidence of any consolidation. BREASTS: Deferred. HEART: The heart sounds are normal. No S3 or S4. No significant murmurs. No pericardial rub ABDOMEN: No vessel pulsations or distention. No tenderness. No organomegaly appreciated. Bowel sounds are normally heard. : Deferred. RECTAL: Deferred. LYMPHATIC: No lymphadenopathy noted in the neck or groin. EXTREMITIES: No edema or cyanosis. No clubbing. Peripheral pulses are palpated in fairly good volume and amplitude. Radial artery puncture site has no hematoma or bleeding MUSCULOSKELETAL: No acute joint deformities or swelling SKIN: There are no significant rashes or ecchymosis NEUROPSYCHIATRIC: The patient is alert and oriented x3. Appears to be in a good mood. No tremors or rigidity noted. Discharge Data Data Completed and Pending: Completed Studies During Hospitalization Category Date Time Status REHABILITATION MANAGER request for service Routin e Exams 05/22/21 05:22 Completed XR chest 1V heather ble [id number] Urgent Exams 05/21/21 07:26 Completed CV. echo complete * [id number] Stat Ultrasound 05/21/21 13:33 Completed Labs from last 24 hours 05/22/21 05/22/21 05/21/21 02:24 02:24 13:16 WBC 8.4 RBC 5.30 Hgb 15.7 Hct 45.6 MCV 86.0 MCH 29.6 D MCHC 34.4 D RDW 12.8 Plt Count 242 MPV 9.8 Neut % (Auto) 45.9 Lymph % (Auto) 38.6 Turner % (Auto) 6.9 Eos % (Auto) 8.0 Baso % (Auto) 0.5 Neut # (Auto) 3.86 Lymph # (Auto) 3.3 Turner # (Auto) 0.6 Eos # (Auto) 0.7 Baso # (Auto) 0.0 Nucleated RBC % (a uto) 0 Nucleated RBCs # 0.0 Sodium 138 Potassium 3.8 Chloride 104 Carbon Dioxide 20 L Anion Gap 17.8 BUN 11 Creatinine 1.0 GFR Calculation 80.8 L Glucose 89 Calculated Osmolal ity 285 Calcium 8.3 L Troponin T Hi Sens 6Hr 6.38 Troponin T Hi Sens 6Hr Delta -2.62 L Vitals: Last Vital Signs Temp 98.1 F 05/22/21 08:19 Pulse 67 05/22/21 10:30 Resp 18 05/22/21 10:30 BP 121/75 05/22/21 10:30 Pulse Ox 97 05/22/21 07:44 Discharge Plan Discharge Patient Disposition: Home Condition: Stable Prescriptions: New isosorbide mononitrate 30 mg Tablet Extended Release 24 Hr 30 mg PO DAILY 30 Days Qty: 30 RF: 0 aspirin 81 mg Tablet,Delayed Release (Dr/Ec) 81 mg PO DAILY Qty: 30 RF: 0 Continued ibuprofen 600 mg tablet 600 mg PO DAILY PRN (Reason: Pain) RF: 0 albuterol sulfate [ProAir HFA] 90 mcg/actuation HFA aerosol inhaler 1 inh inhalation QID PRN (Reason: Shortness Of Breath) RF: 0 budesonide-formoterol [Symbicort] 80-4.5 mcg/actuation HFA aerosol inhaler 2 puff inhalation BID RF: 0 fexofenadine [Claribel Allergy] 60 mg tablet 60 mg PO BID RF: 0 Discharge Orders: Discharge Order (Routine); Ordered 05/22/21 Ordered By: Charles Eason Referrals: Liz Loyola, CARDIAC REHABILITATION SPECIALIST [Primary Care Provider] - Discharge Diet: Advance as tolerated Discharge Activity: Resume usual activity Patient Instructions: Opioid Safety Activity Restrictions/Additional Instructions: Avoid any weight lifting with right hand for the next 2 days. Appointment the [facility] to be seen by the nurse practitioner next week Appointment with me in the office in 1 month Please follow the post radial instructions Discharge Attestations Time Spent in Discharge Care*: less than 30 min Quality Metrics Clinical Quality Measures During this hospital stay, did patient experience: None Coding Level of Care Code Acute Chg FW DC note History Expanded Problem Focused Exam Detailed Medical Decision Making Moderate Complexity Diagnoses Unstable angina pectoris I20.0 Asthma J45.909 Central sleep apnea G47.31 Cervical disc disease M50.90
[2021-05-22 13:26] LABS: Chol HDL Ratio 4.48 mg/dL (1.0-5.00); Cholesterol 179 mg/dL (0-200); HDL Cholesterol 40 mg/dL (60-100); LDL Cholesterol Calculated 99 mg/dL (50-129); LDL HDL Ratio 2.48 RATIO (0.00-3.22); Triglycerides 199 mg/dL (0-150)
--- NOTE | 2021-05-22 14:41 | PC.NURSE ---
Pt education provided, no questions or concerns. VS stable upon departure
== END 2021-05-22 14:42 | disposition home or self-care (01) | DRG 287 ==
LOC: ER 09:04 → CSU 05-22 10:12 → ER IP 05-22 11:55
PROVIDERS: Physician Assistant; Admitting Provider Internal Medicine Cardiovascular Disease; Emergency Provider Family Medicine; PCP Nurse Practitioner Family; Visit Provider Internal Medicine Cardiovascular Disease
PROC: 4A023N7 Measurement of Cardiac Sampling and Pressure, Left Heart, Percutaneous Approach (ICD-10-PCS; principal; 2021-05-22 06:00)
DX: I20.0 Unstable angina (principal); J45.909 Unspecified asthma, uncomplicated; G47.31 Primary central sleep apnea; Z79.51 Long term (current) use of inhaled steroids; M50.90 Cervical disc disorder, unspecified, unspecified cervical region
CPT/HCPCS: 36415; 71045; 80048; 80053; 80061; 84484; 85025; 85610; 85730; 93005; 93306; 93452; 94640; 96360; 96361; 96372; 99291; C1769; C1887; C1894; J1644; J1650; J2250; J3010; J3490; J7030; Q0163; Q9967

== ENCOUNTER → 2021-06-03 15:08 | Outpatient (BNVA) | payer OTHER, SELFPAY | PROVIDERS: PCP Nurse Practitioner Family; Visit Provider Nurse Practitioner Family | DX: I20.9 Angina pectoris, unspecified (principal); Z09 Encounter for follow-up examination after completed treatment for conditions other than malignant neoplasm | CPT/HCPCS: 80048 ==

== ENCOUNTER → 2023-05-18 10:54 | Outpatient (BNVA) | payer OTHER, SELFPAY | PROVIDERS: PCP Clinical Nurse Specialist Adult Health; Visit Provider Clinical Nurse Specialist Adult Health | DX: J45.909 Unspecified asthma, uncomplicated (principal); G47.31 Primary central sleep apnea; Z79.899 Other long term (current) drug therapy | CPT/HCPCS: 80053; 80061; 85025 ==

== ENCOUNTER → 2025-03-22 07:13 | Outpatient (BNVA) | payer OTHER, SELFPAY | PROVIDERS: PCP Family Medicine; Visit Provider Family Medicine | DX: Z00.00 Encounter for general adult medical examination without abnormal findings (principal); E55.9 Vitamin D deficiency, unspecified; Z51.81 Encounter for therapeutic drug level monitoring; R73.09 Other abnormal glucose; Z13.6 Encounter for screening for cardiovascular disorders | CPT/HCPCS: 80053; 80061; 82306; 83036; 85025 ==

== ENCOUNTER 2025-05-16 10:27 | Day surgery (SDC) | payer OTHER, SELFPAY ==
--- NOTE | 2025-05-16 11:02 | W.PM.OPSUD ---
Surgery/Procedure H&P Update DATE OF PROCEDURE: May 16, 2025 DATE H&P PERFORMED: 05/11/25 H&P UPDATE INFORMATION: I have reviewed H&P completed within last 30 days, I have examined patient prior to procedure, No changes to prior documentation and Risks and benefits of the procedure reviewed PLANNED PROCEDURE: Operation Date: 05/16/25 12:00 Proposed Procedures p Colonoscopy [id number] G0105 Z12.11(Not Applicable) - Joseph Sena MD
[2025-05-16 11:03] VITALS: BP 116/81; PULSE 59; RESP 18; TEMP 36.4; O2SAT 95; BMI 37.0
--- NOTE | 2025-05-16 11:13 | P.ANESASSM_ITS ---
Pre-Anesthetic Assessment Height/Weight: Height 1.78 m Weight 117.027 kg Temp Pulse Resp BP Pulse Ox O2 Del Method 97.5 F L 59 L 18 116/81 95 Room Air 05/16/25 11:03 05/16/25 11:03 05/16/25 11:03 05/16/25 11:03 05/16/25 11:03 05/16/25 11:03 Preop Diagnosis: screen Operation Date: 05/16/25 12:00 Proposed Procedures p Colonoscopy 00340 G0105 Z12.11(Not Applicable) - Joseph Sena MD Familial anesthetic complications: none Was Beta Kayleigh taken within 24 hours: N/A Was Clonidine taken within 24 hours: N/A Last intake: Intake Last Liquid Date 05/15/25 Last Liquid Time 21:00 Last Solid Date 05/14/25 Last Solid Time 18:00 Social No alcohol and No tobacco Exam alert, oriented x 3, clear to auscultation bilaterally and regular rate & rhythm Airway Cervical ROM: within normal limits Mallampati: Class II Dentition: full Pulmonary Asthma and Sleep Apnea CV/HEM None reported None reported Hepatic None reported GI None reported Metabolic None reported Musc/skel None reported Neuropsych None reported Anesthetic Plan ASA status: 2 Anesthesia: Anesthesia Evaluation and MAC Risk of > 500 ml blood loss (7ml/kg in children): No Medications/Allergies Home Medications ?Medication ?Instructions ?Recorded ?Confirmed ?Last Taken ?Type fexofenadine 60 mg tablet (Claribel 60 mg PO DAILY 06/0605/11/25 05/15/25 History Allergy) CPAP autotitrating 6-18 cm H2O #1 ea 06/23/22 05/11/25 Unknown Rx CPAP supplies including masks, #1 ea 03/20/25 05/11/25 Unknown Rx tubing, humidifier and all other items needed for the CPAP albuterol sulfate 90 mcg/actuation 2 inh inhalation QI D PRN shortness 03/20/25 05/16/25 2 Weeks Ago Rx aerosol inhaler of breath or wheezing #8.5 g anahi ~05/02/25 budesonide-formoterol HFA 80 2 puff inhalation BID #10 .2 grams 03/20/25 05/16/25 05/16/25 07:00 Rx mcg-4.5 mcg/actuation aerosol inhaler (Symbicort) prednisone 10 mg tablet 10 mg PO PRN PRN allergies 1 07/16/24 05/16/25 05/11/25 History Allergies Allergy/AdvReac Type Severity Reaction Status Date / Time CHOLESTEROL MED UNKNOWN Allergy HIVES Uncoded 05/11/25 07:58 [facility] Anesthesia Medical History URI with cough and congestion Asthma exacerbation Reactive airway disease Active asthma Central sleep apnea wears CPAP every night auto-titrating Cervical disc disease Bulging disc at C6-C7 Cervical spondylosis with radiculopathy Surgical History No pertinent past surgical history Family History (Updated 03/20/25 @ 13:08 by Mauro Holliday MD) Father , Lost a lot of weight, not sure of the cause of his . at age 78. Cancer Abdominal - Had surgery to remove Brother CAD (coronary artery disease) Myocardial infarction 40 Family/Other CAD (coronary artery disease) Myocardial infarction 40 Grandmother Stroke Family/Other , of colon cancer in mid-50's Colon cancer Denies family history of Diabetes Clotting disorder Dementia Chronic kidney disease (CKD) Suicide Anesthesia complication Bleeding disorder Lung disease Social History Smoking and tobacco/nicotine status: never used tobacco/nicotine Alcohol intake: current Alcohol intake frequency: holidays/special occasions only Substance/Drug Use: never Lives independently: Yes Data Anesthesia Cardiac Studies: Echocardiogram 05/21/21 Sestamibi Stress Test (Cardiology) 04/17
[2025-05-16 12:10] VITALS: BP 117/74; PULSE 72; RESP 16; TEMP 36.6; O2SAT 97
[2025-05-16 12:25] VITALS: BP 123/81; PULSE 63; RESP 18; O2SAT 95
[2025-05-16 12:40] VITALS: BP 126/81; PULSE 60; RESP 18; O2SAT 96
--- NOTE | 2025-05-16 12:57 | PC.NURSE ---
states pain in abdomen is better now that he passed some air. pt also belching.
--- NOTE | 2025-05-16 13:05 | ANE.PACU2 ---
Inpatient post-anesthesia follow up: Airway intact: Yes Vital signs: Temperature 97.8 F Pulse Rate 60 Respiratory Rate 18 Blood Pressure 126/81 Pulse Oximetry 96 Oxygen Delivery Me thod Room Air Oxygen Flow Rate Fraction of Inspir ed Oxygen Hydration adequate: Yes Nausea and vomiting: No Pain level: 1 Mental status: Baseline
== END 2025-05-16 13:05 | disposition home or self-care (01) ==
PROVIDERS: PCP Family Medicine; Visit Provider Student in an Organized Health Care Education/Training Program
PROC: 0DJD8ZZ Inspection of Lower Intestinal Tract, Via Natural or Artificial Opening Endoscopic (ICD-10-PCS; CPT 45378; principal; 2025-05-16 12:00)
DX: Z12.11 Encounter for screening for malignant neoplasm of colon (principal); K64.4 Residual hemorrhoidal skin tags; G47.31 Primary central sleep apnea; Z99.89 Dependence on other enabling machines and devices; J45.909 Unspecified asthma, uncomplicated; Z80.0 Family history of malignant neoplasm of digestive organs; Z80.8 Family history of malignant neoplasm of other organs or systems
CPT/HCPCS: 45378; J2704; J7030